=== PATIENT | male | born 1940 | race Caucasian/White ===

== ENCOUNTER 2016-05-24 10:15 | Outpatient (CLI) | payer MEDICARE, BC | END 2016-05-24 10:16 | disposition home or self-care (01) | DX: R63.4 Abnormal weight loss (principal); R03.0 Elevated blood-pressure reading, without diagnosis of hypertension; I48.0 Paroxysmal atrial fibrillation; F41.9 Anxiety disorder, unspecified; D64.9 Anemia, unspecified ==

== ENCOUNTER 2016-06-04 12:47 | Outpatient (CLI) | payer MEDICARE, BC | END 2016-06-04 12:48 | disposition home or self-care (01) | DX: I48.0 Paroxysmal atrial fibrillation (principal); I34.0 Nonrheumatic mitral (valve) insufficiency ==

== ENCOUNTER 2016-09-05 13:14 | Outpatient (CLI) | payer MEDICARE, BC ==
[2016-09-07 17:22] LABS: TEST RESULT REPORT (())
[2016-09-10 15:17] LABS: TEST RESULT REPORT (())
== END 2016-09-05 13:15 | disposition home or self-care (01) ==
LOC: LAB 13:14
PROVIDERS: ATTEND Internal Medicine
DX: R19.7 Diarrhea, unspecified (principal)
CPT/HCPCS: 36415; 81599; 82784; 83516

== ENCOUNTER 2016-09-06 08:40 | Outpatient (CLI) | payer MEDICARE, BC ==
[2016-09-07 10:07] LABS: TEST RESULT REPORT (())
== END 2016-09-06 08:41 | disposition home or self-care (01) ==
LOC: LAB 08:40
PROVIDERS: ATTEND Internal Medicine
DX: R19.7 Diarrhea, unspecified (principal)
CPT/HCPCS: 81599; 83630; 87045; 87046; 87177; 87209; 87329; 87493; 89055

== ENCOUNTER 2016-09-12 10:55 | Day surgery (SDC) | payer MEDICARE, BC ==
[2016-09-12] MEDS ORDERED: LACTATED RINGERS 1,000 ML IV ONE (11:04)
[2016-09-12] MEDS ORDERED: fentaNYL 100 MCG/2 ML VIAL IVP ONE (12:00)
[2016-09-12] MEDS ORDERED: MIDAZOLAM 2 MG/2 ML VIAL IVP ONE (12:00)
[2016-09-12 13:38] VITALS: BP 132/65
== END 2016-09-12 10:56 | disposition home or self-care (01) ==
LOC: SDS 10:55
PROVIDERS: ATTEND Internal Medicine
PROC: 0DBE8ZX Excision of Large Intestine, Via Natural or Artificial Opening Endoscopic, Diagnostic (ICD-10-PCS; 2016-09-12)
PROC: 0DBP8ZX Excision of Rectum, Via Natural or Artificial Opening Endoscopic, Diagnostic (ICD-10-PCS; principal; 2016-09-12 12:00)
DX: K52.9 Noninfective gastroenteritis and colitis, unspecified (principal); R63.4 Abnormal weight loss; K21.9 Gastro-esophageal reflux disease without esophagitis; K57.30 Diverticulosis of large intestine without perforation or abscess without bleeding; K64.8 Other hemorrhoids
CPT/HCPCS: 45380; 88305; J7120

== ENCOUNTER 2018-11-07 14:20 | Outpatient (CLI) | payer MEDICARE, BC ==
--- NOTE | 2018-11-10 03:13 | XRAY Report ---
Reason: RENAL CALCULUS Procedure Date: 11/07/2018 Accession Number: [id number] / [id number] Procedure: XR - Abdomen 1 View X-Ray CPT Code: 88211 FULL RESULT: EXAM: ABDOMEN RADIOGRAPHY EXAM DATE: 11/07/2018 02:32 PM. CLINICAL HISTORY: RENAL CALCULUS. COMPARISON: ABDOMEN/PELVIS W/ 11/04/2015 6:57 PM. TECHNIQUE: 1 view. FINDINGS: Bowel Gas Pattern: Within normal limits. No dilated loops. Other: Approximately 2 cm left renal lower pole stone suspected. IMPRESSION: Approximately 2 cm left renal lower pole stone suspected. RADIA
== END 2018-11-07 14:21 | disposition home or self-care (01) ==
LOC: DI 14:20
PROVIDERS: ATTEND Urology
DX: N20.0 Calculus of kidney (principal); R97.20 Elevated prostate specific antigen [PSA]
CPT/HCPCS: 36415; 74018; 84153

== ENCOUNTER 2019-01-05 10:53 | Outpatient (CLI) | payer MEDICARE, BC ==
[2019-01-05 11:05] LABS: BASOPHILS # (AUTO) 0.1 10^3/uL (0.0-0.1); BASOPHILS % (AUTO) 1.2 %; EOSINOPHILS # (AUTO) 0.4 10^3/uL (0.0-0.7); EOSINOPHILS % (AUTO) 7.3 %; HGB - HEMOGLOBIN 13.9 g/dL (14.0-18.0); LYMPHOCYTES # (AUTO) 1.6 10^3/uL (1.5-3.5); LYMPHOCYTES % (AUTO) 27.6 %; MEAN CORPUSCULAR HEMOGLOBIN 33.3 pg (27.0-31.0); MEAN CORPUSCULAR HGB CONC 32.9 g/dL (32.0-36.0); MEAN CORPUSCULAR VOLUME 101.2 fL (80.0-94.0); MEAN PLATELET VOLUME 10.7 fL (7.4-11.4); MONOCYTES # (AUTO) 0.6 10^3/uL (0.0-1.0); MONOCYTES % (AUTO) 10.3 %; NEUTROPHILS % (AUTO) 53.4 %; PLT - PLATELET COUNT 212 10^3/uL (130-450); RED BLOOD COUNT 4.17 10^6/uL (4.70-6.10); RED CELL DISTRIBUTION WIDTH 13.7 % (12.0-15.0); WHITE BLOOD COUNT 5.7 x10^3/uL (4.8-10.8)
[2019-01-05 11:19] LABS: CALCIUM 9.4 mg/dL (8.5-10.3); CREATININE 1.3 mg/dL (0.6-1.2)
== END 2019-01-05 11:30 | disposition home or self-care (01) ==
LOC: DI 10:53
PROVIDERS: ATTEND Urology
DX: I25.10 Atherosclerotic heart disease of native coronary artery without angina pectoris (principal); N20.0 Calculus of kidney
CPT/HCPCS: 36415; 80048; 85025; 93005

== ENCOUNTER 2019-01-06 09:29 | Outpatient (CLI) | payer MEDICARE, BC ==
--- NOTE | 2019-01-06 14:06 | XRAY Report ---
Reason: ATRIAL FIBRILLATION, CAD Procedure Date: 01/06/2019 Accession Number: [id number] / [id number] Procedure: XRN - Chest 2 View X-Ray CPT Code: 97113 FULL RESULT: EXAM: CHEST RADIOGRAPHY EXAM DATE: 01/06/2019 09:40 AM. CLINICAL HISTORY: ATRIAL FIBRILLATION, CAD. COMPARISON: None. TECHNIQUE: 2 views. FINDINGS: Lungs/Pleura: No focal opacities evident. No pleural effusion. No pneumothorax. Normal volumes. Mediastinum: Heart and mediastinal contours are unremarkable. Other: Minor age-related changes in the spine. Anterior right hemidiaphragm elevation. IMPRESSION: Clear lungs. No acute findings. RADIA
== END 2019-01-06 09:30 | disposition home or self-care (01) ==
LOC: DI.N 09:29
PROVIDERS: ATTEND Urology
DX: I48.91 Unspecified atrial fibrillation (principal); I25.10 Atherosclerotic heart disease of native coronary artery without angina pectoris
CPT/HCPCS: 71046

== ENCOUNTER 2019-01-13 13:17 | Outpatient (CLI) | payer MEDICARE, BC ==
--- NOTE | 2019-01-14 15:32 | XRAY Report ---
Reason: KIDNEY STONE Procedure Date: 01/13/2019 Accession Number: [id number] / [id number] Procedure: XRN - Abdomen 1 View X-Ray CPT Code: 91120 FULL RESULT: EXAM: ABDOMEN RADIOGRAPHY EXAM DATE: 01/13/2019 01:34 PM. CLINICAL HISTORY: KIDNEY STONE. COMPARISON: ABDOMEN 1 VIEW 11/07/2018 2:25 PM. TECHNIQUE: 1 view. FINDINGS: Bowel Gas Pattern: Within normal limits. No dilated loops. Other: Bilateral ureteral stents. Calcifications projected over lower left kidney. Largest measures up to 8 mm. IMPRESSION: 1. Left lower pole kidney calcifications measuring up to 8 mm RADIA
== END 2019-01-13 13:18 | disposition home or self-care (01) ==
LOC: DI.N 13:17
PROVIDERS: ATTEND Urology
DX: N28.89 Other specified disorders of kidney and ureter (principal)
CPT/HCPCS: 74018

== ENCOUNTER 2019-06-03 10:53 | Outpatient (CLI) | payer MEDICARE, BC ==
--- NOTE | 2019-06-03 15:49 | XRAY Report ---
Reason: RENAL CALCULUS Procedure Date: 06/03/2019 Accession Number: [id number] / [id number] Procedure: XRN - Abdomen 1 View X-Ray CPT Code: 35461 Final Report FULL RESULT: EXAM: ABDOMEN RADIOGRAPHY EXAM DATE: 06/03/2019 11:03 AM. CLINICAL HISTORY: Renal calculus. COMPARISON: ABDOMEN 1 VIEW 01/13/2019 1:36 PM ABDOMEN 1 VIEW 11/07/2018 2:25 PM. TECHNIQUE: 1 view. FINDINGS: Bowel Gas Pattern: Within normal limits. No dilated loops. Other: Mild 10-15 degree mid lumbar levocurvature. Interval removal of bilateral ureteral stents. There is a 0.8 cm faint calcific opacity overlying the left lower kidney, consistent with previously described renal stone. Also, a faint 0.2-0.3 cm calcification is seen adjacent to this. Two small calcifications in the right mid pelvis, not definitely seen on prior, could be small stones in the bladder. IMPRESSION: 1. Likely stable 0.8 cm left lower renal pole stone with adjacent smaller 0.2-0.3 cm probable stone. 2. Normal bowel gas pattern. 3. Two small 0.2-0.3 cm calcifications of the right mid pelvis were not seen on prior and may be small stones in the bladder. RADIA
== END 2019-06-03 10:54 | disposition home or self-care (01) ==
LOC: DI.N 10:53
PROVIDERS: ATTEND Urology
DX: N20.0 Calculus of kidney (principal); N20.9 Urinary calculus, unspecified
CPT/HCPCS: 74018

== ENCOUNTER 2020-03-16 08:00 | Outpatient (CLI) | payer MEDICARE, BC ==
[2020-03-16 19:13] LABS: BASOPHILS # (AUTO) 0.1 10^3/uL (0.0-0.1); EOSINOPHILS # (AUTO) 0.3 10^3/uL (0.0-0.7); EOSINOPHILS % (AUTO) 4.9 %; HGB - HEMOGLOBIN 14.2 g/dL (14.0-18.0); LYMPHOCYTES # (AUTO) 1.3 10^3/uL (1.5-3.5); MEAN CORPUSCULAR HEMOGLOBIN 32.7 pg (27.0-31.0); MEAN CORPUSCULAR HGB CONC 32.5 g/dL (32.0-36.0); MEAN CORPUSCULAR VOLUME 100.7 fL (80.0-94.0); MEAN PLATELET VOLUME 12.2 fL (7.4-11.4); MONOCYTES # (AUTO) 0.6 10^3/uL (0.0-1.0); MONOCYTES % (AUTO) 9.8 %; NEUTROPHILS # (AUTO) 3.7 10^3/uL (1.5-6.6); PLT - PLATELET COUNT 209 10^3/uL (130-450); RED BLOOD COUNT 4.34 10^6/uL (4.70-6.10); RED CELL DISTRIBUTION WIDTH 13.6 % (12.0-15.0); WHITE BLOOD COUNT 5.9 x10^3/uL (4.8-10.8)
[2020-03-16 19:24] LABS: ALBUMIN 4.2 g/dL (3.2-5.5); ALBUMIN/GLOBULIN RATIO 1.6 (1.0-2.2); ALKALINE PHOSPHATASE 89 IU/L (42-121); ALT ALANINE AMINOTRANSFERASE 21 IU/L (10-60); AST ASPARTATE AMINOTRANSFERASE 28 IU/L (10-42); BILIRUBIN,TOTAL 0.6 mg/dL (0.2-1.0); BUN - BLOOD UREA NITROGEN 21 mg/dL (6-20); CALCIUM 9.2 mg/dL (8.5-10.3); CARBON DIOXIDE - CO2 26 mmol/L (21-32); CHLORIDE 105 mmol/L (101-111); CHOL/HDL RATIO 3.6 (<5.0); CHOLESTEROL 188 mg/dL; GLUCOSE 101 mg/dL (70-100); HDL CHOLESTEROL 52 mg/dL; LDL CHOLESTEROL,CALCULATED 119 mg/dL; LDL/HDL RATIO 2.3 (<3.6); SODIUM 140 mmol/L (135-145); TOTAL PROTEIN 6.8 g/dL (6.7-8.2); VLDL CHOLESTEROL 17 mg/dL
== END 2020-03-16 23:59 | disposition home or self-care (01) ==
LOC: LAB.WCP 08:00
PROVIDERS: ATTEND Family Medicine
DX: E78.5 Hyperlipidemia, unspecified (principal); Z12.5 Encounter for screening for malignant neoplasm of prostate; F41.9 Anxiety disorder, unspecified; I48.0 Paroxysmal atrial fibrillation; N40.0 Benign prostatic hyperplasia without lower urinary tract symptoms
CPT/HCPCS: 36415; 80053; 80061; 84443; 85025; G0103; 83721; 84153

== ENCOUNTER 2021-03-21 07:00 | Outpatient (CLI) | payer MEDICARE, BC ==
[2021-03-21 12:38] LABS: ALBUMIN 3.8 g/dL (3.2-5.5); ALBUMIN/GLOBULIN RATIO 1.4 (1.0-2.2); ALKALINE PHOSPHATASE 77 IU/L (42-121); ALT ALANINE AMINOTRANSFERASE 23 IU/L (10-60); AST ASPARTATE AMINOTRANSFERASE 30 IU/L (10-42); BILIRUBIN,TOTAL 0.9 mg/dL (0.2-1.0); BUN - BLOOD UREA NITROGEN 15 mg/dL (6-20); CALCIUM 8.9 mg/dL (8.5-10.3); CARBON DIOXIDE - CO2 29 mmol/L (21-32); CHLORIDE 106 mmol/L (101-111); CHOLESTEROL 178 mg/dL; GFR - MDRD 72 (>89); GLUCOSE 98 mg/dL (70-100); HDL CHOLESTEROL 45 mg/dL; LDL CHOLESTEROL,CALCULATED 119 mg/dL; LDL/HDL RATIO 2.6 (<3.6); SODIUM 141 mmol/L (135-145); TOTAL PROTEIN 6.5 g/dL (6.7-8.2); TRIGLYCERIDES 70 mg/dL; VLDL CHOLESTEROL 14 mg/dL
[2021-03-21 12:50] LABS: THYROID STIMULATING HORMONE 3.22 uIU/mL (0.34-5.60)
[2021-03-21 13:18] LABS: BASOPHILS # (AUTO) 0.1 10^3/uL (0.0-0.1); BASOPHILS % (AUTO) 1.1 %; EOSINOPHILS # (AUTO) 0.6 10^3/uL (0.0-0.7); EOSINOPHILS % (AUTO) 10.6 %; HCT - HEMATOCRIT 42.9 % (42.0-52.0); HGB - HEMOGLOBIN 13.7 g/dL (14.0-18.0); LYMPHOCYTES # (AUTO) 1.8 10^3/uL (1.5-3.5); LYMPHOCYTES % (AUTO) 32.6 %; MEAN CORPUSCULAR HEMOGLOBIN 32.5 pg (27.0-31.0); MEAN CORPUSCULAR HGB CONC 31.9 g/dL (32.0-36.0); MEAN CORPUSCULAR VOLUME 101.9 fL (80.0-94.0); MEAN PLATELET VOLUME 12.2 fL (7.4-11.4); MONOCYTES # (AUTO) 0.6 10^3/uL (0.0-1.0); NEUTROPHILS # (AUTO) 2.5 10^3/uL (1.5-6.6); NEUTROPHILS % (AUTO) 44.3 %; PLT - PLATELET COUNT 205 10^3/uL (130-450); RED BLOOD COUNT 4.21 10^6/uL (4.70-6.10); RED CELL DISTRIBUTION WIDTH 13.4 % (12.0-15.0); WHITE BLOOD COUNT 5.7 x10^3/uL (4.8-10.8)
== END 2021-03-21 23:59 | disposition home or self-care (01) ==
LOC: LAB.WCP 07:00
PROVIDERS: ATTEND Family Medicine
DX: M54.16 Radiculopathy, lumbar region (principal); G60.9 Hereditary and idiopathic neuropathy, unspecified; E78.5 Hyperlipidemia, unspecified; I48.0 Paroxysmal atrial fibrillation; N40.0 Benign prostatic hyperplasia without lower urinary tract symptoms
CPT/HCPCS: 36415; 80053; 80061; 83721; 84443; 85025

== ENCOUNTER 2022-05-08 07:22 | Outpatient (CLI) | payer MEDICARE, BC ==
[2022-05-08 11:39] LABS: BASOPHILS # (AUTO) 0.1 10^3/uL (0.0-0.1); BASOPHILS % (AUTO) 1.1 %; EOSINOPHILS # (AUTO) 0.4 10^3/uL (0.0-0.7); EOSINOPHILS % (AUTO) 7.1 %; HGB - HEMOGLOBIN 14.2 g/dL (14.0-18.0); LYMPHOCYTES # (AUTO) 1.7 10^3/uL (1.5-3.5); LYMPHOCYTES % (AUTO) 27.9 %; MEAN CORPUSCULAR HEMOGLOBIN 31.8 pg (27.0-31.0); MEAN CORPUSCULAR HGB CONC 31.6 g/dL (32.0-36.0); MEAN CORPUSCULAR VOLUME 100.7 fL (80.0-94.0); MEAN PLATELET VOLUME 11.5 fL (7.4-11.4); MONOCYTES # (AUTO) 0.7 10^3/uL (0.0-1.0); NEUTROPHILS # (AUTO) 3.2 10^3/uL (1.5-6.6); NEUTROPHILS % (AUTO) 52.6 %; PLT - PLATELET COUNT 231 10^3/uL (130-450); RED BLOOD COUNT 4.47 10^6/uL (4.70-6.10); RED CELL DISTRIBUTION WIDTH 13.6 % (12.0-15.0); WHITE BLOOD COUNT 6.2 x10^3/uL (4.8-10.8)
[2022-05-08 12:19] LABS: THYROID STIMULATING HORMONE 3.09 uIU/mL (0.34-5.60)
[2022-05-08 12:29] LABS: ALBUMIN 4.1 g/dL (3.2-5.5); ALBUMIN/GLOBULIN RATIO 1.4 (1.0-2.2); ALKALINE PHOSPHATASE 86 IU/L (42-121); ALT ALANINE AMINOTRANSFERASE 24 IU/L (10-60); AST ASPARTATE AMINOTRANSFERASE 32 IU/L (10-42); BILIRUBIN,TOTAL 0.9 mg/dL (0.2-1.0); BUN - BLOOD UREA NITROGEN 16 mg/dL (6-20); CALCIUM 9.3 mg/dL (8.5-10.3); CARBON DIOXIDE - CO2 31 mmol/L (21-32); CHLORIDE 104 mmol/L (101-111); CHOL/HDL RATIO 3.9 (<5.0); CHOLESTEROL 208 mg/dL; CREATININE 1.1 mg/dL (0.6-1.2); GFR - MDRD 64 (>89); GLUCOSE 103 mg/dL (70-100); HDL CHOLESTEROL 53 mg/dL; LDL CHOLESTEROL,CALCULATED 141 mg/dL; LDL/HDL RATIO 2.7 (<3.6); POTASSIUM 4.4 mmol/L (3.5-5.0); SODIUM 141 mmol/L (135-145); TOTAL PROTEIN 7.1 g/dL (6.7-8.2); TRIGLYCERIDES 70 mg/dL; VLDL CHOLESTEROL 14 mg/dL
== END 2022-05-08 07:23 | disposition home or self-care (01) ==
LOC: LAB.N 07:22
PROVIDERS: ATTEND Family Medicine
DX: E78.5 Hyperlipidemia, unspecified (principal); I48.0 Paroxysmal atrial fibrillation; D64.9 Anemia, unspecified
CPT/HCPCS: 36415; 80053; 80061; 83721; 84443; 85025

== ENCOUNTER 2023-07-09 07:52 | Outpatient (CLI) | payer MEDICARE, BC ==
[2023-07-09 12:28] LABS: BASOPHILS # (AUTO) 0.1 10^3/uL (0.0-0.1); EOSINOPHILS # (AUTO) 0.5 10^3/uL (0.0-0.7); EOSINOPHILS % (AUTO) 7.3 %; HCT - HEMATOCRIT 42.5 % (42.0-52.0); HGB - HEMOGLOBIN 13.6 g/dL (14.0-18.0); LYMPHOCYTES # (AUTO) 1.8 10^3/uL (1.5-3.5); MEAN CORPUSCULAR HEMOGLOBIN 32.7 pg (27.0-31.0); MEAN CORPUSCULAR VOLUME 102.2 fL (80.0-94.0); MEAN PLATELET VOLUME 11.1 fL (7.4-11.4); MONOCYTES # (AUTO) 0.6 10^3/uL (0.0-1.0); MONOCYTES % (AUTO) 9.6 %; NEUTROPHILS # (AUTO) 3.7 10^3/uL (1.5-6.6); PLT - PLATELET COUNT 245 10^3/uL (130-450); RED BLOOD COUNT 4.16 10^6/uL (4.70-6.10); RED CELL DISTRIBUTION WIDTH 13.2 % (12.0-15.0); WHITE BLOOD COUNT 6.7 x10^3/uL (4.8-10.8)
[2023-07-09 12:53] LABS: ALBUMIN/GLOBULIN RATIO 1.6 (1.0-2.2); ALKALINE PHOSPHATASE 109 IU/L (42-121); ALT ALANINE AMINOTRANSFERASE 20 IU/L (10-60); AST ASPARTATE AMINOTRANSFERASE 26 IU/L (10-42); BILIRUBIN,TOTAL 0.5 mg/dL (0.2-1.0); BUN - BLOOD UREA NITROGEN 15 mg/dL (6-20); CALCIUM 9.6 mg/dL (8.5-10.3); CARBON DIOXIDE - CO2 31 mmol/L (21-32); CHLORIDE 106 mmol/L (101-111); CHOL/HDL RATIO 3.6 (<5.0); CHOLESTEROL 175 mg/dL; GFR - MDRD 72 (>89); GLUCOSE 96 mg/dL (74-104); HDL CHOLESTEROL 48 mg/dL; LDL CHOLESTEROL,CALCULATED 114 mg/dL; LDL/HDL RATIO 2.4 (<3.6); POTASSIUM 4.4 mmol/L (3.5-4.5); SODIUM 140 mmol/L (135-145); THYROID STIMULATING HORMONE 3.21 uIU/mL (0.34-5.60); TOTAL PROTEIN 6.5 g/dL (6.4-8.9); TRIGLYCERIDES 66 mg/dL (48-352); VLDL CHOLESTEROL 13 mg/dL
== END 2023-07-09 07:53 | disposition home or self-care (01) ==
LOC: LAB.N 07:52
PROVIDERS: ATTEND Family Medicine
DX: M54.16 Radiculopathy, lumbar region (principal); G60.9 Hereditary and idiopathic neuropathy, unspecified; E78.5 Hyperlipidemia, unspecified; F41.9 Anxiety disorder, unspecified; I48.0 Paroxysmal atrial fibrillation; M54.32 Sciatica, left side
CPT/HCPCS: 36415; 80053; 80061; 83721; 84443; 85025